=== PATIENT | female | born 1980 | race African-American/Black ===

== ENCOUNTER 2017-07-08 13:45 | Emergency (ER) | payer MEDICAID ==
[~2017-07-08] VITALS: Ht 170.2 cm; Wt 87.0 kg
[2017-07-08 14:48] LABS: HEMATOCRIT 38.9 % (34.6-47.8); HEMOGLOBIN 13.3 g/dL (11.7-16.4); WHITE BLOOD COUNT 8.6 x10^3/uL (3.4-10)
[2017-07-08 14:57] LABS: BLOOD UREA NITROGEN 13 mg/dL (7-18)
[2017-07-08 15:09] LABS: HCG UR LOT HCG7030192
[2017-07-08 15:16] LABS: HCG UR OBC PASS
[2017-07-08 15:18] LABS: PATH.CAST-FLAG NOT PRESENT; SPERM-FLAG NOT PRESENT; SRC-FLAG NOT PRESENT; XTAL-FLAG NOT PRESENT; YLC-FLAG NOT PRESENT
[2017-07-08 17:14] VITALS: BP 125/90
== END 2017-07-08 17:22 | disposition home or self-care (01) ==
LOC: ED 16:50
DX: N30.01 Acute cystitis with hematuria (principal); R10.84 Generalized abdominal pain; F17.200 Nicotine dependence, unspecified, uncomplicated
CPT/HCPCS: 36415; 80048; 81001; 81025; 82040; 85025; 87077; 87086; 87186; 99284